=== PATIENT | male | born 1960 | race Caucasian/White ===

== ENCOUNTER → 2017-11-03 07:41 | Outpatient (CLI) | payer BC, SELFPAY | PROVIDERS: Family Provider Family Medicine; PCP Family Medicine; Visit Provider Surgery | DX: E21.3 Hyperparathyroidism, unspecified (principal) | CPT/HCPCS: 76536 ==

== ENCOUNTER 2018-06-19 17:42 | Emergency (ER) | payer OTHER, BC, SELFPAY ==
[2018-06-19 17:43] VITALS: BP 144/80; PULSE 78; RESP 17; TEMP 36.7; O2SAT 97; BMI 28.6
--- NOTE | 2018-06-19 18:16 | RAD_ITS ---
STUDY: X-RAY - LEFT HIP REASON FOR EXAM: Male, 58 years old. Fell and injured left hip 2 days ago TECHNIQUE: 2 views of the hip. COMPARISON: None. FINDINGS: Normal femoral head, neck, intertrochanteric region and visualized proximal femur. Normal acetabulum. Normal hip joint. Normal visualized superior and inferior pubic rami and ischial tuberosities. RAD/HIP, UNI W/ Pelvis 2-3 Views IMPRESSION: Normal x-ray examination of the hip. Electronically Signed: Justin Rodriguez MD at 21:02 EDT , Service support ,
--- NOTE | 2018-06-19 19:42 | ED.VISSUMM ---
- ER Visit Summary Date of Service: 06/19/18 Chief Complaint: Left lower back and hip pain History of Present Illness: The patient is a 58 M medical history of diabetes. On Friday at work the patient was hit by a garage door closing. It knocked him to the ground as he was falling back he hit his left posterior lower back on a cement barrier. No LOC. He is on no blood thinners. He does complain of discomfort. He is able to walk. No prior hip or back history. No prior surgery to those areas. Physical Examination: Well-appearing middle-age male. Vital signs are stable afebrile. HEENT exam atraumatic. Nontender. C-spine nontender normal range of motion. Lungs clear to auscultation bilaterally. Chest wall nontender. Heart regular rate and rhythm no murmur. Abdomen soft and nontender. No signs of trauma. Pelvic girdle intact. Extremities moves all 4. Neurovascular intact. Normal range of motion. Left hip laterally is nontender nor swollen. He has full flexion-extension of the left hip, knee ankle and foot. Both upper and lower extremities are neurovascularly intact. Back the thoracic and lumbar spine are nontender on his left posterior iliac crest there is an area of bruising. It is tender to palpation. Neurologically is awake alert with no focal motor deficits. GCS of 15. Test Results: X-ray of the pelvis and left hip 3 views shows no acute abnormality read by myself. Emergency Department Course and Treatment: Ice to the area and Motrin for pain. Treatment Plan: Ice. Motrin. Follow-up with corporate care as needed. Disposition: Discharge Impression: Hit by a garage door at work with a workers comp injury Left lower back (iliac Crest) contusion This note was generated with [employer] dictation software. It may contain incorrect words, spelling, and punctuation that were not noted in review of the chart prior to signing ED Disposition - Plan for ED Patient: Referrals: Zafar Lazo MD [Primary Care Provider] -
--- NOTE | 2018-06-19 19:46 | ED.DCSUM_ITS ---
- ER Visit Summary Date of Service: 06/19/18 Chief Complaint: Left lower back and hip pain History of Present Illness: The patient is a 58 M medical history of diabetes. On Friday at work the patient was hit by a garage door closing. It knocked him to the ground as he was falling back he hit his left posterior lower back on a cement barrier. No LOC. He is on no blood thinners. He does complain of discomfort. He is able to walk. No prior hip or back history. No prior surgery to those areas. Physical Examination: Well-appearing middle-age male. Vital signs are stable afebrile. HEENT exam atraumatic. Nontender. C-spine nontender normal range of motion. Lungs clear to auscultation bilaterally. Chest wall nontender. Heart regular rate and rhythm no murmur. Abdomen soft and nontender. No signs of trauma. Pelvic girdle intact. Extremities moves all 4. Neurovascular intact. Normal range of motion. Left hip laterally is nontender nor swollen. He has full flexion-extension of the left hip, knee ankle and foot. Both upper and lower extremities are neurovascularly intact. Back the thoracic and lumbar spine are nontender on his left posterior iliac crest there is an area of bruising. It is tender to palpation. Neurologically is awake alert with no f ocal motor deficits. GCS of 15. Test Results: X-ray of the pelvis and left hip 3 views shows no acute abnormality read by myself. Emergency Department Course and Treatment: Ice to the area and Motrin for pain. Treatment Plan: Ice. Motrin. Follow-up with corporate care as needed. Disposition: Discharge Impression: Hit by a garage door at work with a workers comp injury Left lower back (iliac Crest) contusion This note was generated with [employer] dictation software. It may contain incorrect words, spelling, and punctuation that were not noted in review of the chart prior to signing ED Disposition - Plan for ED Patient: Referrals: Zafar Lazo MD [Primary Care Provider] -
--- NOTE | 2018-06-19 19:46 | ED.DEP ---
ED Disposition - Plan for ED Patient: Disposition: Home or Assisted Living Instructions: ED Contusion Hip Referrals: [facility] [GROUP OF PHYSICIANS] - 1 Week if not improving Additional Instructions: Ice to the area. Motrin for pain. Follow-up with corporate care if not improving.
== END 2018-06-19 19:58 | disposition home or self-care (01) ==
PROVIDERS: Emergency Provider Emergency Medicine; Family Provider Family Medicine; PCP Family Medicine
DX: S30.0XXA Contusion of lower back and pelvis, initial encounter (principal); S30.1XXA Contusion of abdominal wall, initial encounter; W20.8XXA Other cause of strike by thrown, projected or falling object, initial encounter; Y93.9 Activity, unspecified; Y92.89 Other specified places as the place of occurrence of the external cause; Y99.0 Civilian activity done for income or pay; E11.9 Type 2 diabetes mellitus without complications; R19.7 Diarrhea, unspecified
CPT/HCPCS: 73502; 99283

== ENCOUNTER → 2018-11-06 10:30 | Outpatient (CLI) | payer OTHER, SELFPAY ==
[2018-11-06 09:53] VITALS: BMI 28.6
--- NOTE | 2018-11-06 10:34 | RAD_ITS ---
STUDY: X-RAY - RIGHT ANKLE REASON FOR EXAM: Male, 58 years old. Lateral pain and abrasions following injury. TECHNIQUE: 3 view(s) of the ankle. COMPARISON: None. FINDINGS: Normal visualized distal tibia and fibula. Old avulsion fracture of the medial malleolus. Normal tibiotalar articulation and ankle mortise. Calcaneal spurs. The visualized subtalar, talonavicular, calcaneocuboid and tarsal articulations are normal. The soft tissue structures are unremarkable. RAD/Ankle min 3 Views IMPRESSION: Old avulsion fracture of the medial malleolus. Calcaneal spurs. Electronically Signed: Jesus Hinojosa, at 10:49 EDT , Service support ,
== END ==
PROVIDERS: Family Provider Family Medicine; PCP Family Medicine; Referring Provider Physician Assistant; Visit Provider Physician Assistant
DX: S91.011A Laceration without foreign body, right ankle, initial encounter (principal)
CPT/HCPCS: 73610

== ENCOUNTER 2018-11-17 15:15 | Outpatient (RCR) | payer OTHER, SELFPAY ==
[2018-11-12 09:57] VITALS: BMI 28.6
[2018-11-17 16:15] VITALS: BP 153/88; PULSE 73; RESP 16; TEMP 37.2; BMI 27.8
--- NOTE | 2018-11-17 17:20 | PN.PCM_ITS ---
(1) Laceration of right ankle Status: Acute Current Visit: Yes Code(s): S91.011A - Laceration without foreign body, right ankle, initial encounter (2) Cellulitis of right lower extremity Status: Acute Current Visit: Yes Code(s): L03.115 - Cellulitis of right lower limb (3) Ulcer of right lower leg Status: Acute Current Visit: Yes Code(s): L97.919 - Non-pressure chronic ulcer of unspecified part of right lower leg with unspecified severity Type of Wound Date of Service: 11/17/18 Chief Complaint: Opened area on right lateral ankle History of Wound: Patient obtained a laceration to his right lateral ankle while at work on 10/30/18. He got his foot caught when the brake did not work when a pallet was being moved. [facility] and he has been putting antibiotic ointment on it. He also has been taking Clindamycin for the cellulitis. Patient has a history of DM, smoking. Progress of Wound: Stable. - Physical Exam Vital Signs Temp Pulse Resp BP 98.9 F 73 16 153/88 H 11/17/18 16:15 11/17/18 16:15 11/17/18 16:15 11/17/18 16:15 General: Alert, Oriented x3, Cooperative HEENT: Atraumatic Oral: Moist Mucosa Lungs: Clear to auscultation, Normal air movement Cardiovascular: Regular rate, Regular Rhythm Abdomen: Soft Extremities: No edema, Capillary Refill Less than 3 Seconds, Diminished Per ipheral Pulses Skin: Ulcer/ Wound - Right lateral ankle ulcer (actually it is above the ankle on the right lower lateral leg) Wound Measurements and Assessment WC - Nurse 1 - General Ulcer Measurement Start: 11/17/18 16:15 Freq: Status: Active Protocol: Activity Type Activity Date Activity User E-Sign Co-Sign Detail Recorded Client Recorded Date Recorded By Document 11/17/18 16:15 MW [id number] 11/17/18 16:28 MW 11/17/18 16:15 Wound Center Nurse 1 [Ulcer Assessment] #1 RIGHT LATERAL LE -Combined with other wound No -Current Size (cm) - Length 0.5 -Current Size (cm) - Width 0.9 -Current Size (cm) - Depth 0.1 -Total Square Cm 0.45 -Date of Last Picture (Recall this 11/17/18 field) -Photo Taken Yes -Epithelialization None Present -Tunneling No -Undermining/Tunneling No -Circular Undermining No -Exudate Amt Small -Exudate Type Serous -Wound Margin Flat & Intact -Granulation Amt None Present (0 %) -Granulation Quality N/A -Slough/Fibrin Yes -Necrosis Amt Large (67-100%) -Necrotic Tissue Type Adherent Slough -Structure Exposed N/A -Texture (Usha-wound Skin Appearance) Assessed -Moisture (Usha-wound Skin Appearance No Abnormality, ) Assessed -Color (Usha-wound Skin Appearance) Assessed,Rubor -Temperature (Usha-wound Skin No Abnormality Appearance) (Pt Warm) -Tenderness on Palpation (Usha-wound No Skin Appearance) -Ulcer Cleansing Rinsed/ Irrigated with Saline -Foul Odor after Cleansing No -Anesthetic Used 5% Lidocaine Gel [Edema Assessment] -Lower Limb Edema Present No -Right Calf (cm) 38.0 -Right Ankle (cm) 22.5 -Left Calf (cm) 35.5 -Left Ankle (cm) 22.0 WC - Nurse 2 - General Ulcer CM Notes Start: 11/17/18 16:15 Freq: Status: Active Protocol: Activity Type Activity Date Activity User E-Sign Co-Sign Detail Recorded Client Recorded Date Recorded By Document 11/17/18 16:54 [id number] 11/17/18 16:59 11/17/18 16:54 Wound Center Nurse 2 [Procedure/Treatment] #1 RIGHT LATERAL LE -Time 16:58 -Correct Patient Yes -Correct Side, Site, Position Yes -Correct Procedure Yes -Procedure Performed Yes -Type of Procedure Debridement -Clinical Debridement Subcutaneous -Post Debridement Size (cm) - Length 0.5 -Post Debridement Size (cm) - Width 0.8 -Post Debridement Size (cm) - Depth 0.2 -Total Square Cm 0.40 -Wound/Ulcer Outcome Not Healed -Ulcer Cleansing Rinsed/ Irrigated with Saline -Foul Odor after Cleansing No -Bioengineered Tissue No -Bleeding Controlled with Pressure -Offloading No -Treatment Response Procedure Tolerated Well [See Physician Procedure note for Specifics] Pain Scale: 0-10 Numeric [Pain] -Is Patient Pain Free? Yes Musculoskeletal: No Tenderness to Palpation of Joints or Extremities Neurological: Neuro grossly intact Psych/Mental Status: Normal Affect, Appropriate Debridement Note Post-Debridement Measurements/Treatment WC - Nurse 2 - General Ulcer CM Notes Start: 11/17/18 16:15 Freq: Status: Active Protocol: Activity Type Activity Date Activity User E-Sign Co-Sign Detail Recorded Client Recorded Date Recorded By Document 11/17/18 16:54 [id number] 11/17/18 16:59 11/17/18 16:54 Wound Center Nurse 2 #1 RIGHT LATERAL LE -Time 16:58 -Correct Patient Yes -Correct Side, Site, Position Yes -Correct Procedure Yes -Procedure Performed Yes -Type of Procedure Debridement -Clinical Debridement Subcutaneous -Post Debridement Size (cm) - Length 0.5 -Post Debridement Size (cm) - Width 0.8 -Post Debridement Size (cm) - Depth 0.2 -Total Square Cm 0.40 -Wound/Ulcer Outcome Not Healed -Ulcer Cleansing Rinsed/ Irrigated with Saline -Foul Odor after Cleansing No -Bioengineered Tissue No -Bleeding Controlled with Pressure -Offloading No -Treatment Response Procedure Tolerated Well Pain Scale: 0-10 Numeric Is Patient Pain Free? Yes Wound debrided: Right ankle (lower lateral leg) Type of Debridement: Excisional debridement Anesthesia Used: 4% Lidocaine Solution, 5% Lidocaine Gel Depth: Down to and including healthy tissue, in the subcutaneous layer Percentage of wound debrided: 100 Instrument Used: 3mm curette Tissue Removed: Subcutaneous tissue and slough Severity: Fat Layer Exposed Amount of bleeding with debridement: Mild Bleeding Controlled with: Pressure, Compression and gauze Patient tolerated procedure well Assessment/Plan Active Problems (Last Reviewed 11/19/18 @ 08:46 by Melissa Gordon) Ulcer of right lower leg (Acute) Cellulitis of right lower extremity (Acute) Laceration of right ankle (Acute) Assessment: 1. Cellulitis of right lower extremity. 2. Laceration of right ankle. 3. Ulcer of right lower leg Plan: Patient is a 58 yo male who was seen and evaluated today in the wound healing center. He had a subcutaneous debridement of his right lateral ankle/lower leg ulcer today as documented above. He obtained a laceration to his right lateral ankle (it is actually located on distal aspect of right lateral leg above the ankle but the ankle is approved by [facility]) while at work on 10/30/18. He got his foot caught when the brake did not work when a pallet was being moved. [facility] and he has been putting antibiotic ointment on it. They referred him to the wound center. He also has been taking Clindamycin for the cellulitis. Patient has a history of DM, smoking. Will have the patient start using collagen hydrogel with adaptic daily. Will apply for Santyl which will help debride the wound bed to help it heal better. Follow up in one week. Code Visit Office Visits / Consults: [id number] OV L3 Est - 25 modifer [id number]: [id number] Shanita subq tissue 20 sq cm/<
== END 2018-11-21 23:59 ==
LOC: WC 15:15
PROVIDERS: Family Provider Family Medicine; PCP Family Medicine; Visit Provider Nurse Practitioner Family
DX: S91.011A Laceration without foreign body, right ankle, initial encounter (principal); W23.0XXA Caught, crushed, jammed, or pinched between moving objects, initial encounter; Y93.89 Activity, other specified; Y92.89 Other specified places as the place of occurrence of the external cause; Y99.0 Civilian activity done for income or pay; L03.115 Cellulitis of right lower limb; E11.9 Type 2 diabetes mellitus without complications; F17.200 Nicotine dependence, unspecified, uncomplicated
CPT/HCPCS: 11042; 99213; G0463

== ENCOUNTER 2018-12-15 13:15 | Outpatient (RCR) | payer OTHER, SELFPAY ==
[2018-11-19 10:23] VITALS: BMI 27.8
[2018-11-22 01:16] VITALS: BP 153/88; PULSE 73; RESP 16; TEMP 37.2
[2018-11-24 15:13] VITALS: BP 141/82; PULSE 82; RESP 18; TEMP 36.6; BMI 27.8
--- NOTE | 2018-11-24 16:29 | PN.PCM_ITS ---
(1) Laceration of right ankle Status: Chronic Current Visit: Yes Code(s): S91.011A - Laceration without foreign body, right ankle, initial encounter (2) Ulcer of right lower leg Status: Chronic Current Visit: Yes Code(s): L97.919 - Non-pressure chronic ulcer of unspecified part of right lower leg with unspecified severity (3) Cellulitis of right lower extremity Status: Acute Current Visit: No Code(s): L03.115 - Cellulitis of right lower limb Type of Wound Date of Service: 11/24/18 Chief Complaint: Opened area on right lateral ankle History of Wound: Patient obtained a laceration to his right lateral ankle while at work on 10/30/18. He got his foot caught when the brake did not work when a pallet was being moved. [facility] the ulcer and he has been putting antibiotic ointment on it. He also has been taking Clindamycin for the cellulitis. Patient has a history of DM, smoking. Progress of Wound: Stable. - Physical Exam Vital Signs Temp Pulse Resp BP 97.8 F 82 18 141/82 H 11/24/18 15:13 11/24/18 15:13 11/24/18 15:13 11/24/18 15:13 General: Alert, Oriented x3, Cooperative HEENT: Atraumatic Oral: Moist Mucosa Neck: Supple Lungs: Normal air movement Cardiovascular: Regular rate Extremities: Capillary Refill Less than 3 Seconds, Edema - dependent edema bilaterally, Peripheral Pulses Normal Skin: Ulcer/ Wound - right lateral ankle Wound Measurements and Assessment WC - Nurse 1 - General Ulcer Measurement Start: 11/24/18 15:13 Freq: Status: Active Protocol: Activity Type Activity Date Activity User E-Sign Co-Sign Detail Recorded Client Recorded Date Recorded By Document 11/24/18 15:13 RB [id number] 11/24/18 15:15 RB 11/24/18 15:13 Wound Center Nurse 1 [Ulcer Assessment] #1 RIGHT LATERAL LE -Combined with other wound No -Current Size (cm) - Length 0.5 -Current Size (cm) - Width 0.8 -Current Size (cm) - Depth 0.1 -Total Square Cm 0.40 -Date of Last Picture (Recall this 11/17/18 field) -Epithelialization None Present -Tunneling No -Undermining/Tunneling No -Circular Undermining No -Exudate Amt Small -Exudate Type Serosanguineous -Wound Margin Flat & Intact -Granulation Amt Medium (34-66%) -Granulation Quality [place] -Slough/Fibrin Yes -Necrosis Amt Medium (34-66%) -Necrotic Tissue Type Adherent Slough -Structure Exposed N/A -Texture (Usha-wound Skin Appearance) Assessed -Moisture (Suha-wound Skin Appearance Assessed ) -Color (Usha-wound Skin Appearance) Assessed -Temperature (Usha-wound Skin No Abnormality Appearance) (Pt Warm) -Tenderness on Palpation (Usha-wound No Skin Appearance) -Ulcer Cleansing Wound Cleanser -Foul Odor after Cleansing No -Anesthetic Used 5% Lidocaine Gel [Edema Assessment] -Lower Limb Edema Present No -Right Calf (cm) 35 -Right Ankle (cm) 22.5 WC - Nurse 2 - General Ulcer CM Notes Start: 11/24/18 15:13 Freq: Status: Active Protocol: Activity Type Activity Date Activity User E-Sign Co-Sign Detail Recorded Client Recorded Date Recorded By Document 11/24/18 15:41 [id number] 11/24/18 15:50 11/24/18 15:41 Wound Center Nurse 2 [Procedure/Treatment] #1 RIGHT LATERAL LE -Time 15:43 -Correct Patient Yes -Correct Side, Site, Position Yes -Correct Procedure Yes -Procedure Performed Yes -Type of Procedure Debridement -Clinical Debridement Subcutaneous -Post Debridement Size (cm) - Length 0.4 -Post Debridement Size (cm) - Width 0.7 -Post Debridement Size (cm) - Depth 0.2 -Total Square Cm 0.28 -Wound/Ulcer Outcome Not Healed -Ulcer Cleansing Rinsed/ Irrigated with Saline -Foul Odor after Cleansing No -Bioengineered Tissue No -Bleeding Controlled with Pressure -Offloading No -Treatment Response Procedure Tolerated Well [See Physician Procedure note for Specifics] Pain Scale: 0-10 Numeric [Pain] -Is Patient Pain Free? Yes Musculoskeletal: No Tenderness to Palpation of Joints or Extremities Neurological: Neuro grossly intact Psych/Mental Status: Normal Affect, Appropriate Debridement Note Post-Debridement Measurements/Treatment WC - Nurse 2 - General Ulcer CM Notes Start: 11/24/18 15:13 Freq: Status: Active Protocol: Activity Type Activity Date Activity User E-Sign Co-Sign Detail Recorded Client Recorded Date Recorded By Document 11/24/18 15:41 [id number] 11/24/18 15:50 11/24/18 15:41 Wound Center Nurse 2 #1 RIGHT LATERAL LE -Time 15:43 -Correct Patient Yes -Correct Side, Site, Position Yes -Correct Procedure Yes -Procedure Performed Yes -Type of Procedure Debridement -Clinical Debridement Subcutaneous -Post Debridement Size (cm) - Length 0.4 -Post Debridement Size (cm) - Width 0.7 -Post Debridement Size (cm) - Depth 0.2 -Total Square Cm 0.28 -Wound/Ulcer Outcome Not Healed -Ulcer Cleansing Rinsed/ Irrigated with Saline -Foul Odor after Cleansing No -Bioengineered Tissue No -Bleeding Controlled with Pressure -Offloading No -Treatment Response Procedure Tolerated Well Pain Scale: 0-10 Numeric Is Patient Pain Free? Yes Wound debrided: right lateral ankle Type of Debridement: Excisional debridement Anesthesia Used: 4% Lidocaine Solution, 5% Lidocaine Gel Depth: Down to and including healthy tissue, in the subcutaneous layer Percentage of wound debrided: 100 Instrument Used: 3mm curette, - - scissors and pick ups Tissue Removed: Subcutaneous tissue and slough Severity: Fat Layer Exposed Amount of bleeding with debridement: Mild Bleeding Controlled with: Pressure, Compression and gauze Patient tolerated procedure well Assessment/Plan Active Problems (Last Reviewed 11/19/18 @ 08:46 by Melissa Gordon) Ulcer of right lower leg (Chronic) Laceration of right ankle (Chronic) Assessment: 1. Cellulitis of right lower extremity. 2. Laceration of right ankle. 3. Ulcer of right lower leg Plan: Patient is a 58 yo male who was seen and evaluated today in the wound healing center. He had a subcutaneous debridement of his right lateral ankle/lower leg ulcer today as documented above. He obtained a laceration to his right lateral ankle (it is actually located on distal aspect of right lateral leg above the ankle but the ankle is approved by [facility]) while at work on 10/30/18. He got his foot caught when the brake did not work when a pallet was being moved. [facility] ulcer and he has been putting antibiotic ointment on it. They referred him to the wound center. He also has been taking Clindamycin for the cellulitis. Patient has a history of DM, smoking. Will have the patient start using collagen hydrogel with adaptic daily. Waiting for Santyl approval, which will help debride the wound bed to help it heal better. Follow up in one week. Code Visit 111xxx-113xx: [id number] Shanita subq tissue 20 sq cm/<
[2018-12-01 13:33] VITALS: BP 139/87; PULSE 90; RESP 20; TEMP 37.4; BMI 27.8
--- NOTE | 2018-12-01 14:34 | PCM.WC.PN ---
(1) Laceration of right ankle Status: Chronic Current Visit: Yes Code(s): S91.011A - Laceration without foreign body, right ankle, initial encounter (2) Ulcer of right lower leg Status: Chronic Current Visit: Yes Code(s): L97.919 - Non-pressure chronic ulcer of unspecified part of right lower leg with unspecified severity (3) Cellulitis of right lower extremity Status: Acute Current Visit: No Code(s): L03.115 - Cellulitis of right lower limb Type of Wound Date of Service: 12/01/18 Chief Complaint: Opened area on right lateral ankle History of Wound: Patient obtained a laceration to his right lateral ankle while at work on 10/30/18. He got his foot caught when the brake did not work when a pallet was being moved. [facility] and he has been putting antibiotic ointment on it. He also has been taking Clindamycin for the cellulitis. Patient has a history of DM, smoking. Wound care Becki. Progress of Wound: Stable. - Physical Exam Vital Signs Temp Pulse Resp BP 99.3 F H 90 20 H 139/87 H 12/01/18 13:33 12/01/18 13:33 12/01/18 13:33 12/01/18 13:33 General: Alert, Oriented x3, Cooperative HEENT: Atraumatic Oral: Moist Mucosa Lungs: Normal air movement Cardiovascular: Regular rate Extremities: Capillary Refill Less than 3 Seconds, Peripheral Pulses Normal Skin: Ulcer/ Wound - right lateral ankle/lower leg ulcer Wound Measurements and Assessment WC - Nurse 1 - General Ulcer Measurement Start: 11/24/18 15:13 Freq: Status: Active Protocol: Activity Type Activity Date Activity User E-Sign Co-Sign Detail Recorded Client Recorded Date Recorded By Document 12/01/18 13:33 DL [id number] 12/01/18 13:40 DL 12/01/18 13:33 Wound Center Nurse 1 [Ulcer Assessment] #1 RIGHT LATERAL LE -Current Size (cm) - Length 0.4 -Current Size (cm) - Width 0.7 -Current Size (cm) - Depth 0.1 -Total Square Cm 0.28 -Photo Taken No -Exudate Amt None Present -Exudate Type Serosanguineous -Wound Margin Distinct, Outline Attached -Granulation Amt None Present (0 %) -Necrosis Amt Large (67-100%) -Necrotic Tissue Type Adherent Slough -Structure Exposed N/A -Texture (Usha-wound Skin Appearance) Localized Edema ,Scarring -Moisture (Usha-wound Skin Appearance No Abnormality ) -Color (Usha-wound Skin Appearance) Erythema -Temperature (Usha-wound Skin No Abnormality Appearance) (Pt Warm) -Tenderness on Palpation (Usha-wound No Skin Appearance) -Ulcer Cleansing Wound Cleanser -Foul Odor after Cleansing No -Anesthetic Used 5% Lidocaine Gel [Edema Assessment] -Right Calf (cm) 35.5 -Right Ankle (cm) 21.2 WC - Nurse 2 - General Ulcer CM Notes Start: 11/24/18 15:13 Freq: Status: Active Protocol: Activity Type Activity Date Activity User E-Sign Co-Sign Detail Recorded Client Recorded Date Recorded By Document 12/01/18 13:47 DL [id number] 12/01/18 13:48 DL 12/01/18 13:47 Wound Center Nurse 2 [Procedure/Treatment] #1 RIGHT LATERAL LE -Time 13:48 -Correct Patient Yes -Correct Side, Site, Position Yes -Correct Procedure Yes -Procedure Performed Yes -Type of Procedure Debridement -Clinical Debridement Subcutaneous -Post Debridement Size (cm) - Length 0.5 -Post Debridement Size (cm) - Width 0.8 -Post Debridement Size (cm) - Depth 0.2 -Total Square Cm 0.40 -Wound/Ulcer Outcome Not Healed -Ulcer Cleansing Rinsed/ Irrigated with Saline -Foul Odor after Cleansing No -Bioengineered Tissue No -Bleeding Controlled with Pressure -Offloading No -Treatment Response Procedure Tolerated Well [See Physician Procedure note for Specifics] Pain Scale: 0-10 Numeric [Pain] -Is Patient Pain Free? Yes Musculoskeletal: No Tenderness to Palpation of Joints or Extremities Neurological: Neuro grossly intact Psych/Mental Status: Normal Affect, Appropriate Debridement Note Post-Debridement Measurements/Treatment WC - Nurse 2 - General Ulcer CM Notes Start: 11/24/18 15:13 Freq: Status: Active Protocol: Activity Type Activity Date Activity User E-Sign Co-Sign Detail Recorded Client Recorded Date Recorded By Document 11/24/18 15:41 [id number] 11/24/18 15:50 JF Document 12/01/18 13:47 DL [id number] 12/01/18 13:48 DL 11/24/18 12/01/18 15:41 13:47 Wound Center Nurse 2 #1 RIGHT LATERAL LE -Time 15:43 13:48 -Correct Patient Yes Yes -Correct Side, Site, Position Yes Yes -Correct Procedure Yes Yes -Procedure Performed Yes Yes -Type of Procedure Debridement Debridement -Clinical Debridement Subcutaneous Subcutaneous -Post Debridement Size (cm) - Length 0.4 0.5 -Post Debridement Size (cm) - Width 0.7 0.8 -Post Debridement Size (cm) - Depth 0.2 0.2 -Total Square Cm 0.28 0.40 -Wound/Ulcer Outcome Not Healed Not Healed -Ulcer Cleansing Rinsed/ Rinsed/ Irrigated with Irrigated with Saline Saline -Foul Odor after Cleansing No No -Bioengineered Tissue No No -Bleeding Controlled with Pressure Pressure -Offloading No No -Treatment Response Procedure Procedure Tolerated Well Tolerated Well Pain Scale: 0-10 Numeric Is Patient Pain Free? Yes Yes Wound debrided: lateral ankle/lower leg Laterality: Right Type of Debridement: Excisional debridement Anesthesia Used: 4% Lidocaine Solution, 5% Lidocaine Gel Depth: Down to and including healthy tissue, in the subcutaneous layer Percentage of wound debrided: 100 Instrument Used: 3mm curette Tissue Removed: Subcutaneous tissue and slough Severity: Fat Layer Exposed Amount of bleeding with debridement: Mild Bleeding Controlled with: Pressure Patient tolerated procedure well Assessment/Plan Active Problems (Last Reviewed 11/19/18 @ 08:46 by Melissa Gordon) Ulcer of right lower leg (Chronic) Laceration of right ankle (Chronic) Assessment: 1. Cellulitis of right lower extremity. 2. Laceration of right ankle. 3. Ulcer of right lower leg Plan: Patient is a 58 yo male who was seen and evaluated today in the wound healing center. He had a subcutaneous debridement of his right lateral ankle/lower leg ulcer today as documented above. He obtained a laceration to his right lateral ankle (it is actually located on distal aspect of right lateral leg above the ankle but the ankle is approved by [facility]) while at work on 10/30/18. He got his foot caught when the brake did not work when a pallet was being moved. He has been being seen at the [facility] clinic for management of the ulcer and he has been putting antibiotic ointment on it. They referred him to the wound center. He has finished taking Clindamycin for the cellulitis. Patient has a history of DM, smoking. Will stop the collagen hydrogel and start him on Moistened Becki dressing. Continue to wear tubigrip for compression. Follow up in 2 weeks due to patient going to [facility] for vacation next week. Code Visit [id number]: [id number] Shanita subq tissue 20 sq cm/<
[2018-12-15 13:00] VITALS: BP 146/87; PULSE 83; RESP 16; TEMP 37.2; BMI 27.8
--- NOTE | 2018-12-15 14:12 | PCM.WC.PN ---
(1) Laceration of right ankle Status: Chronic Current Visit: Yes Code(s): S91.011A - Laceration without foreign body, right ankle, initial encounter (2) Ulcer of right lower leg Status: Chronic Current Visit: Yes Code(s): L97.919 - Non-pressure chronic ulcer of unspecified part of right lower leg with unspecified severity (3) Cellulitis of right lower extremity Status: Acute Current Visit: No Code(s): L03.115 - Cellulitis of right lower limb Type of Wound Date of Service: 12/15/18 Chief Complaint: Opened area on right lateral ankle History of Wound: Patient obtained a laceration to his right lateral ankle while at work on 10/30/18. He got his foot caught when the brake did not work when a pallet was being moved. [facility] the ulcer and he has been putting antibiotic ointment on it. He also has been taking Clindamycin for the cellulitis. Patient has a history of DM, smoking. Wound is healed today. Progress of Wound: Healed. - Physical Exam Vital Signs Temp Pulse Resp BP 98.9 F 83 16 146/87 H 12/15/18 13:00 12/15/18 13:00 12/15/18 13:00 12/15/18 13:00 General: Alert, Oriented x3, Cooperative HEENT: Atraumatic Oral: Moist Mucosa Lungs: Normal air movement Cardiovascular: Regular rate Extremities: No edema, Capillary Refill Less than 3 Seconds Skin: Ulcer/ Wound - right lateral ankle healed Wound Measurements and Assessment WC - Nurse 1 - General Ulcer Measurement Start: 11/24/18 15:13 Freq: Status: Active Protocol: Activity Type Activity Date Activity User E-Sign Co-Sign Detail Recorded Client Recorded Date Recorded By Document 12/15/18 13:00 DAJA [id number] 12/15/18 13:01 DAJA 12/15/18 13:00 Wound Center Nurse 1 [Ulcer Assessment] #1 RIGHT LATERAL LE -Combined with other wound No -Current Size (cm) - Length 0 -Current Size (cm) - Width 0 -Current Size (cm) - Depth 0 -Total Square Cm 0 -Epithelialization Large 67-100% -Tunneling No -Undermining/Tunneling No -Circular Undermining No -Exudate Amt None Present -Wound Margin Flat & Intact -Granulation Amt Large (67-100%) -Granulation Quality [place] -Slough/Fibrin No -Structure Exposed N/A -Texture (Usha-wound Skin Appearance) Assessed, Scarring -Moisture (Usha-wound Skin Appearance Assessed,Dry/ ) Scaly -Color (Usha-wound Skin Appearance) Assessed -Temperature (Usha-wound Skin No Abnormality Appearance) (Pt Warm) -Tenderness on Palpation (Usha-wound No Skin Appearance) -Ulcer Cleansing Rinsed/ Irrigated with Saline -Foul Odor after Cleansing No -Anesthetic Used 5% Lidocaine Gel [Edema Assessment] -Lower Limb Edema Present Yes -Right Calf (cm) 35.4 -Right Ankle (cm) 21.6 - Nurse 2 - General Ulcer CM Notes Start: 11/24/18 15:13 Freq: Status: Active Protocol: Activity Type Activity Date Activity User E-Sign Co-Sign Detail Recorded Client Recorded Date Recorded By Document 12/15/18 13:46 [id number] 12/15/18 13:49 12/15/18 13:46 Wound Center Nurse 2 [Procedure/Treatment] #1 RIGHT LATERAL LE -Correct Patient No -Correct Side, Site, Position No -Correct Procedure No -Procedure Performed No -Post Debridement Size (cm) - Length 0 -Post Debridement Size (cm) - Width 0 -Post Debridement Size (cm) - Depth 0 -Total Square Cm 0 -Wound/Ulcer Outcome Healed- Epithelialized [See Physician Procedure note for Specifics] Pain Scale: 0-10 Numeric [Pain] -Is Patient Pain Free? Yes Musculoskeletal: No Tenderness to Palpation of Joints or Extremities Neurological: Neuro grossly intact Psych/Mental Status: Normal Affect, Appropriate Debridement Note Post-Debridement Measurements/Treatment - Nurse 2 - General Ulcer CM Notes Start: 11/24/18 15:13 Freq: Status: Active Protocol: Activity Type Activity Date Activity User E-Sign Co-Sign Detail Recorded Client Recorded Date Recorded By Document 11/24/18 15:41 [id number] 11/24/18 15:50 JF Document 12/01/18 13:47 DL [id number] 12/01/18 13:48 DL Document 12/15/18 13:46 [id number] 12/15/18 13:49 11/24/18 12/01/18 12/15/18 15:41 13:47 13:46 Wound Center Nurse 2 #1 RIGHT LATERAL LE -Time 15:43 13:48 -Correct Patient Yes Yes No -Correct Side, Site, Position Yes Yes No -Correct Procedure Yes Yes No -Procedure Performed Yes Yes No -Type of Procedure Debridement Debridement -Clinical Debridement Subcutaneous Subcutaneous -Post Debridement Size (cm) - Length 0.4 0.5 0 -Post Debridement Size (cm) - Width 0.7 0.8 0 -Post Debridement Size (cm) - Depth 0.2 0.2 0 -Total Square Cm 0.28 0.40 0 -Wound/Ulcer Outcome Not Healed Not Healed Healed- Epithelialized -Ulcer Cleansing Rinsed/ Rinsed/ Irrigated with Irrigated with Saline Saline -Foul Odor after Cleansing No No -Bioengineered Tissue No No -Bleeding Controlled with Pressure Pressure -Offloading No No -Treatment Response Procedure Procedure Tolerated Well Tolerated Well Pain Scale: 0-10 Numeric Is Patient Pain Free? Yes Yes Yes No debridement was completed today Assessment/Plan Active Problems (Last Reviewed 11/19/18 @ 08:46 by Melissa Gordon) Ulcer of right lower leg (Chronic) Laceration of right ankle (Chronic) Assessment: 1. Cellulitis of right lower extremity. 2. Laceration of right ankle. 3. Ulcer of right lower leg Plan: Patient is a 58 yo male who was seen and evaluated today in the wound healing center. He had a subcutaneous debridement of his right lateral ankle/lower leg ulcer today as documented above. He obtained a laceration to his right lateral ankle (it is actually located on distal aspect of right lateral leg above the ankle but the ankle is approved by [facility]) while at work on 10/30/18. He got his foot caught when the brake did not work when a pallet was being moved. [facility] for [facility] the ulcer and he has been putting antibiotic ointment on it. They referred him to the wound center. He has finished taking Clindamycin for the cellulitis. Patient has a history of DM, smoking. Wound is healed today. Encouraged him to massage the area a couple times a day to help soften the scarring. Instructed him to wear the tubigrip while at work and active to help prevent swelling. ESTHER from the wound healing center. Instructed him to follow up with Mitchel at the [facility] to close his case out. Code Visit Office Visits / Consults: [id number] OV L3 Est
== END 2018-12-21 23:59 ==
LOC: WC 13:15
PROVIDERS: Family Provider Family Medicine; PCP Family Medicine; Visit Provider Nurse Practitioner Family
DX: S91.011A Laceration without foreign body, right ankle, initial encounter (principal); W23.0XXA Caught, crushed, jammed, or pinched between moving objects, initial encounter; Y93.89 Activity, other specified; Y92.89 Other specified places as the place of occurrence of the external cause; Y99.0 Civilian activity done for income or pay; L03.115 Cellulitis of right lower limb; E11.9 Type 2 diabetes mellitus without complications; F17.200 Nicotine dependence, unspecified, uncomplicated
CPT/HCPCS: 11042; 99213; G0463

== ENCOUNTER → 2023-07-22 | Outpatient (CLI) | payer OTHER, SELFPAY ==
--- NOTE | 2023-07-22 18:35 | RAD_ITS ---
STUDY: X-RAY - UNILATERAL RIBS ( RIGHT ) WITH CHEST REASON FOR EXAM: Male, 63 years old. Right rib pain TECHNIQUE - RIBS: 4 view(s) of the ribs. TECHNIQUE - CHEST: Single frontal view of the chest. COMPARISON: None. FINDINGS - RIBS: Normal visualized ribs without a demonstrated fracture. FINDINGS - CHEST: The lungs are clear and expanded. There is no demonstrated pleural abnormality. Normal size heart. There are coronary endovascular stents. Normal mediastinum and abdirahman. Normal visualized pulmonary arteries. Normal visualized aortic arch and descending thoracic aorta. There are diffuse degenerative changes of the visualized thoracic spine. Normal visualized ribs, clavicles, and shoulders. There is no demonstrated abnormality of the visualized soft tissue structures of the upper abdomen. RAD/Ribs Uni Min 3V w/PA Chest IMPRESSION: RIBS: Normal x-ray examination of the ribs. CHEST: Degenerative changes, as described above. No demonstrated acute cardiopulmonary process. Electronically Signed: Kieran Khan MD at 19:32 EDT ,
== END | disposition home or self-care (01) ==
PROVIDERS: Visit Provider Physician Assistant
DX: S20.219A Contusion of unspecified front wall of thorax, initial encounter (principal)
CPT/HCPCS: 71101